=== PATIENT | female | born 1970 | race Two or more races ===

== ENCOUNTER → 2016-04-13 | Outpatient (CLI) | payer MEDICARE | LOC: RAD 09:46 | PROVIDERS: ATTEND Thoracic Surgery (Cardiothoracic Vascular Surgery) | DX: R94.8 Abnormal results of function studies of other organs and systems (principal) | CPT/HCPCS: 74170 ==

== ENCOUNTER 2016-06-16 05:54 | Emergency (ER) | payer MEDICARE ==
[2016-06-16 07:17] LABS: ABSOLUTE LYMPHOCYTES (AUTO) 0.9 10^3/uL (0.5-4.7); ABSOLUTE MONOCYTES (AUTO) 0.4 10^3/uL (0.1-1.4); ABSOLUTE NEUT (AUTO) 6.8 10^3/uL (1.7-8.2); BASOPHILS % (AUTO) 0.1 % (0-2); EOSINOPHILS % (AUTO) 0.4 % (0-6); HEMATOCRIT 41.5 % (36.0-47.0); HEMOGLOBIN 14.3 g/dL (12.0-15.5); HGB HCT DIFFERENCE 1.4; LYMPHOCYTES % (AUTO) 11.5 % (13-45); MEAN CORPUSCULAR HEMOGLOBIN 31.1 pg (27.0-33.4); MEAN CORPUSCULAR HGB CONC 34.4 g/dL (32.0-36.0); MEAN CORPUSCULAR VOLUME 90 fl (80-97); MONOCYTES % (AUTO) 4.6 % (3-13); RED BLOOD COUNT 4.59 10^6/uL (3.72-5.28); RED CELL DISTRIBUTION WIDTH 12.7 % (11.5-14.0); SEGMENTED NEUTROPHILS % (AUTO) 83.4 % (42-78); WHITE BLOOD COUNT 8.2 10^3/uL (4.0-10.5)
[2016-06-16 07:35] LABS: ALANINE AMINOTRANSFERASE 29 U/L (9-52); ALBUMIN 4.3 g/dL (3.5-5.0); ALKALINE PHOSPHATASE 79 U/L (38-126); ANION GAP 13 (5-19); ASPARTATE AMINO TRANSFERASE 23 U/L (14-36); BILIRUBIN,TOTAL 0.9 mg/dL (0.2-1.3); BLOOD UREA NITROGEN 14 mg/dL (7-20); CALCIUM 8.9 mg/dL (8.4-10.2); CARBON DIOXIDE 20 mmol/L (22-30); CHLORIDE 105 mmol/L (98-107); CREATINE KINASE 48 U/L (30-135); CREATININE RESULT 0.82 mg/dL (0.52-1.25); GLUCOSE 118 mg/dL (75-110); POTASSIUM 3.7 mmol/L (3.6-5.0); SODIUM 137.7 mmol/L (137-145); TOTAL PROTEIN 8.1 g/dL (6.3-8.2)
[2016-06-16] MEDS ORDERED: RINGERS SOLUTION,LACTATED 1,000 ML IV ONE ×2 (07:39→08:33)
--- NOTE | 2016-06-16 07:39 | ER Document Report ---
ED General - General Time seen by provider: 07:33 Mode of Arrival: Wheelchair Information source: Patient, Relative - son TRAVEL OUTSIDE OF THE [place] IN LAST 30 DAYS: No - HPI Onset: This morning - see HPI note Onset/Duration: Sudden Associated symptoms: Productive cough, Diarrhea, Nausea, Rhinnorhea, Sore throat <CECILLE TIRADO - Last Filed: 06/16/16 09:26> <ELYSIA CASTILLO - Last Filed: 06/16/16 11:02> - General Chief Complaint: Near Syncope Stated Complaint: POSSIBLE SYNCOPAL EPISODE Notes: Patient is a 46 year old female presenting to the emergency department for possible syncope. Patient states she has had diarrhea x 1 day. Patient also complains of dizziness, light headedness, and nausea. Patient states she went to the bathroom at 05:30 this morning and also had diarrhea. Patinet states she went back to her bed, then quickly got up to turn the light on. She started having more severe lightheadedness and called her son. Patient states she then woke up on the floor and her son was there. Patient states "everything went black." Patient went to her doctor recently for cold like symptoms of sore throat, cough, and congestion. Patient states she received Augmentin. Patient states she did not take her dose for last night because she felt too nauseous. Patient was hypotensive upon arrival and is still hypotensive during exam with a BP of 97/71. Patient states that she now she feels tired and nauseous. Patient has no known allergies. (CECILLE TIRADO) - Related Data Allergies/Adverse Reactions: No Known Allergies Allergy (Verified 12/03/15 11:51) Past Medical History - General Information source: Patient - Social History Smoking Status: Never Smoker Frequency of alcohol use: None Drug Abuse: None Family History: None Patient has suicidal ideation: No Patient has homicidal ideation: No Past Surgical History: Reports: Hx Orthopedic Surgery - Immunizations Hx Diphtheria, Pertussis, Tetanus Vaccination: No <CECILLE TIRADO - Last Filed: 06/16/16 09:26> Review of Systems - Review of Systems Constitutional: No symptoms reported EENT: No symptoms reported Cardiovascular: See HPI, Dizziness, Lightheaded Respiratory: No symptoms reported Gastrointestinal: See HPI, Diarrhea, Nausea Genitourinary: No symptoms reported Female Genitourinary: No symptoms reported Musculoskeletal: No symptoms reported Skin: No symptoms reported Hematologic/Lymphatic: No symptoms reported Neurological/Psychological: See HPI -: Yes All other systems reviewed and negative <CECILLE TIRADO - Last Filed: 06/16/16 09:26> Physical Exam - Vital signs Interpretation: Hypotensive - General General appearance: Appears well, Alert In distress: Mild - HEENT Head: Normocephalic, Atraumatic Eyes: Normal Pupils: PERRL Mucous membranes: Moist - Respiratory Respiratory status: No respiratory distress Chest status: Nontender Breath sounds: Normal Chest palpation: Normal - Cardiovascular Rhythm: Regular Heart sounds: Normal auscultation Murmur: No - Abdominal Inspection: Normal Distension: No distension Bowel sounds: Normal Tenderness: Nontender Organomegaly: No organomegaly - Back Back: Normal, Nontender - Extremities General upper extremity: Normal inspection, Normal ROM, Normal strength General lower extremity: Normal inspection, Normal ROM, Normal strength - Neurological Neuro grossly intact: Yes Cognition: Normal Orientation: AAOx4 [place] Coma Scale Eye Opening: Spontaneous [place] Coma Scale Verbal: Oriented Neeta Coma Scale Motor: Obeys Commands [place] Coma Scale Total: 15 Speech: Normal - Psychological Associated symptoms: Normal affect, Normal mood - Skin Skin Temperature: Warm Skin Moisture: Dry <CECILLE TIRADO - Last Filed: 06/16/16 09:26> Course - Laboratory Result Diagrams: 06/16/16 06:30 06/16/16 06:39 <CECILLE TIRADO - Last Filed: 06/16/16 09:26> - Laboratory Result Diagrams: 06/16/16 06:30 06/16/16 06:39 - EKG Interpretation by Nm EKG shows normal: Sinus rhythm, [place], Intervals, QRS Complexes, ST-T Waves - Diffuse nonspecific T abnormalities Rate: Tachycardia - 100 When compared to previous EKG there are: Changes noted - Diffuse T-wave inversions, new since 11/04/2014 <ELYSIA CASTILLO - Last Filed: 06/16/16 11:02> - Re-evaluation Re-evalutation: 06/16/16 10:56 Patient is feeling much better now after 2 L of IV fluids. Her nauseousness is gone and she is inquiring about eating breakfast. There has been no diarrhea since she was first seen. (ELYSIA CASTILLO) - Vital Signs Vital signs: Temp Pulse Resp BP Pulse Ox 97.6 F 97 13 108/75 97 06/16/16 05:55 06/16/16 07:22 06/16/16 10:01 06/16/16 10:01 06/16/16 10:01 - Laboratory Laboratory results interpreted by me: 06/16/16 06/16/16 06/16/16 06:30 06:39 07:35 Seg Neutrophils % 83.4 H Lymphocytes % 11.5 L Carbon Dioxide 20 L Glucose 118 H Urine Protein 100 H Urine Ketones TRACE H Discharge <CECILLE TIRADO - Last Filed: 06/16/16 09:26> <LUIS F CASTILLOALL - Last Filed: 06/16/16 11:02> - Discharge Clinical Impression: Nausea Diarrhea Qualifiers: Diarrhea type: unspecified type Qualified Code(s): R19.7 - Diarrhea, unspecified Condition: Stable Disposition: HOME, SELF-CARE Additional Instructions: Diarrhea: Diarrhea means frequent, watery stools. There are many causes. Any problem that keeps the intestinal tract from absorbing water from the stool can lead to diarrhea. A sudden new diarrhea problem is usually caused by a virus, food sensitivity, toxic bacteria, or drugs. In this case, we expect the problem to go away soon. Testing is done only if you seem seriously ill from the diarrhea. If you have chronic diarrhea, or diarrhea that keeps coming back, we need to find out why. Chronic diarrhea can be due to inflammation of the bowels such as Crohn's disease or ulcerative colitis, food sensitivity such as intolerance to lactose or wheat protein, irritable bowel syndrome, and other problems. If your diarrhea is a significant problem but it's not clear why you have it, we' ll refer you to a specialist for further testing. During an episode of diarrhea, drink small amounts (two to six ounces) of clear liquids (soft drinks, sport drinks, herb teas, broth, etc). Take fluids frequently to prevent dehydration. It's usually not a problem to take mild anti- diarrhea medication such as Kaopectate or Pepto-Bismol. As the diarrhea eases, advance to small amounts of bland food (mashed potato, toast) for 24 hours. Call the physician if blood appears in your vomit or stool, if vomiting lasts longer than 24 hours, if the abdominal pain worsens or becomes localized to one area, if you develop high fever, or if you become lightheaded and weak. Nausea, Nonspecific: Nausea without vomiting can be caused by many different problems. Of course , it can mean that something's wrong with the stomach, such as "stomach flu," ulcers, or inflammation. But it can also be a symptom of a problem that has nothing to do with the stomach or intestines. In most cases, curing the nausea depends on fixing the problem that caused it. For temporary relief, we may use an anti-nausea medicine. It's important to avoid dehydration. Sip clear liquids. Take increasing amounts of fluid over the first 24 hours. Then start small amounts of bland foods (such as dry toast, applesauce, mashed potato). Avoid aspirin, tobacco, and alcohol. Gradually resume your usual diet. If the vomiting worsens, if the problem that's making you vomit worsens, or if there's evidence of bleeding in the stomach (such as black, tarry stool, bloody or black vomit, or lightheadedness), you should return immediately. Call your doctor if you aren't improved in 24 to 36 hours. TAKE THE MEDICATION DISPENSED AND PRESCRIBED FOR NAUSEA IF NEEDED. DRINK COOL CLEAR LIQUIDS TODAY. REST. FOLLOW UP WITH DR. RIVAS IF NOT IMPROVING. RETURN TO THE EMERGENCY ROOM IF ANY NEW OR WORSENING SYMPTOMS. Prescriptions: Ondansetron HCl [Zofran 4 mg Tablet] 1 - 2 tab PO Q4H PRN #12 tablet PRN Reason: Referrals: ALVIN RIVAS MD [Primary Care Provider] - Follow up as needed Scribe Attestation: 06/16/16 11:01 I personally performed the services described in the documentation, reviewed and edited the documentation which was dictated to the scribe in my presence, and it accurately records my words and actions. (ELYSIA CASTILLO) Scribe Documentation - Scribe Written by Emery:: Cecille Tirado 06/16/16 09:40 acting as scribe for :: Carmina <CECILLE TIRADO - Last Filed: 06/16/16 09:26>
[2016-06-16] MEDS ORDERED: ONDANSETRON HCL INJ/PF 4 MG/2 ML SDV IV ONE (07:40)
[2016-06-16 07:51] LABS: APPEARANCE,URINE CLOUDY; BILIRUBIN,URINE NEGATIVE (NEGATIVE); GLUCOSE, URINE NEGATIVE (NEGATIVE); KETONES,URINE TRACE mg/dL (NEGATIVE); LEUKOCYTE ESTERASE,URINE NEGATIVE (NEGATIVE); NITRITE,URINE NEGATIVE (NEGATIVE); PROTEIN,URINE 100 mg/dL (NEGATIVE); UROBILINOGEN,URINE NEGATIVE mg/dL (<2.0)
[2016-06-16 07:56] LABS: CREATINE KINASE MB < 0.22 ng/mL (<4.55); TROPONIN I < 0.012 ng/mL
--- NOTE | 2016-06-16 07:57 | EKG REPORT ---
SEVERITY:- ABNORMAL ECG - SINUS TACHYCARDIA NONSPECIFIC T ABNORMALITIES, DIFFUSE LEADS : Confirmed by: Brisa Babb MD 16-Jun-2016 07:56:45
[2016-06-16 10:47] VITALS: BP 108/75
[2016-06-16] MEDS ORDERED: ONDANSETRON ODT 4 MG TAB (6 TAB/DSPK) PO PRN (11:01)
== END 2016-06-16 11:17 | disposition home or self-care (01) ==
LOC: ER 05:54
DX: R19.7 Diarrhea, unspecified (principal); R11.0 Nausea; I95.9 Hypotension, unspecified; R94.31 Abnormal electrocardiogram [ECG] [EKG]; R42 Dizziness and giddiness; J02.9 Acute pharyngitis, unspecified; R05 Cough; R53.83 Other fatigue; J34.89 Other specified disorders of nose and nasal sinuses
CPT/HCPCS: 93005; 99284; 96375; 96365; 96366; 36415; 82553; 82550; 85025; 80053; 81001; 84484; 93010; J2405; J7120

== ENCOUNTER 2016-06-27 10:22 | Emergency (ER) | payer MEDICARE ==
[2016-06-27] MEDS ORDERED: MECLIZINE HCL 25 MG TABLET PO ONE (10:28)
--- NOTE | 2016-06-27 10:30 | ER Document Report ---
ED Medical Screen (RME) - General Stated Complaint: DIZZINESS Mode of Arrival: Ambulatory Information source: Patient Notes: March presents to the emergency department with complaints of dizziness. Patient reports she woke up dizzy and thought it would go away after eating something but it didn't. She also reports that she was evaluated here last week for an episode of syncope. Denies other symptoms such as fever vomiting diarrhea chest pain. I have greeted and performed a rapid initial assessment of this patient. A comprehensive ED assessment and evaluation of the patient, analysis of test results and completion of the medical decision making process will be conducted by additional ED providers. TRAVEL OUTSIDE OF THE [place] IN LAST 30 DAYS: No - Related Data Allergies/Adverse Reactions: No Known Allergies Allergy (Verified 12/03/15 11:51) Past Medical History - Past Medical History Cardiac Medical History: Denies: Hx Coronary Artery Disease, Hx Heart Attack, Hx Hypertension Pulmonary Medical History: Denies: Hx Asthma, Hx Bronchitis, Hx COPD, Hx Pneumonia Neurological Medical History: Denies: Hx Cerebrovascular Accident, Hx Seizures Renal/ Medical History: Denies: Hx Peritoneal Dialysis Musculoskeltal Medical History: Denies Hx Arthritis Past Surgical History: Reports: Hx Orthopedic Surgery. Denies: Hx Hysterectomy - Immunizations Hx Diphtheria, Pertussis, Tetanus Vaccination: No Physical Exam - Vital signs Vitals: Temp Pulse Resp BP Pulse Ox 98.4 F 71 20 126/84 H 99 06/27/16 10:06/27/16 10:06/27/16 10:06/27/16 10:06/27/16 10:26 Course - Vital Signs Vital signs: Temp Pulse Resp BP Pulse Ox 98.4 F 71 20 126/84 H 99 06/27/16 10:06/27/16 10:06/27/16 10:06/27/16 10:06/27/16 10:26
[2016-06-27 11:09] LABS: ABSOLUTE MONOCYTES (AUTO) 0.6 10^3/uL (0.1-1.4); ABSOLUTE NEUT (AUTO) 5.2 10^3/uL (1.7-8.2); APPEARANCE,URINE CLEAR; BASOPHILS % (AUTO) 0.3 % (0-2); BILIRUBIN,URINE NEGATIVE (NEGATIVE); EOSINOPHILS % (AUTO) 0.4 % (0-6); GLUCOSE, URINE NEGATIVE (NEGATIVE); HEMATOCRIT 39.8 % (36.0-47.0); HEMOGLOBIN 13.4 g/dL (12.0-15.5); HGB HCT DIFFERENCE 0.4; KETONES,URINE NEGATIVE (NEGATIVE); LEUKOCYTE ESTERASE,URINE NEGATIVE (NEGATIVE); LYMPHOCYTES % (AUTO) 25.1 % (13-45); MEAN CORPUSCULAR HEMOGLOBIN 30.3 pg (27.0-33.4); MEAN CORPUSCULAR HGB CONC 33.7 g/dL (32.0-36.0); MEAN CORPUSCULAR VOLUME 90 fl (80-97); MONOCYTES % (AUTO) 8.1 % (3-13); NITRITE,URINE NEGATIVE (NEGATIVE); PROTEIN,URINE NEGATIVE (NEGATIVE); RED BLOOD COUNT 4.41 10^6/uL (3.72-5.28); RED CELL DISTRIBUTION WIDTH 12.7 % (11.5-14.0); SEGMENTED NEUTROPHILS % (AUTO) 66.1 % (42-78); URINE SPECIFIC GRAVITY 1.014; UROBILINOGEN,URINE NEGATIVE mg/dL (<2.0); WHITE BLOOD COUNT 7.8 10^3/uL (4.0-10.5)
[2016-06-27 11:33] LABS: ALANINE AMINOTRANSFERASE 31 U/L (9-52); ALBUMIN 4.3 g/dL (3.5-5.0); ALKALINE PHOSPHATASE 76 U/L (38-126); ANION GAP 15 (5-19); ASPARTATE AMINO TRANSFERASE 21 U/L (14-36); BILIRUBIN,DIRECT 0.2 mg/dL (0.0-0.4); BILIRUBIN,TOTAL 0.6 mg/dL (0.2-1.3); BLOOD UREA NITROGEN 11 mg/dL (7-20); CALCIUM 9.6 mg/dL (8.4-10.2); CARBON DIOXIDE 20 mmol/L (22-30); CHLORIDE 109 mmol/L (98-107); CREATININE RESULT 0.72 mg/dL (0.52-1.25); GLUCOSE 98 mg/dL (75-110); POTASSIUM 3.9 mmol/L (3.6-5.0); SODIUM 143.7 mmol/L (137-145); TOTAL PROTEIN 7.5 g/dL (6.3-8.2)
--- NOTE | 2016-06-27 11:40 | ER Document Report ---
ED Dizziness/Weakness <ELYSIA CASTILLO - Last Filed: 06/27/16 11:43> - General Mode of Arrival: Ambulatory Information source: Patient TRAVEL OUTSIDE OF THE [place] IN LAST 30 DAYS: No - HPI Patient complains to provider of: Dizziness, Vertigo Onset: This morning Exacerbated by: Movement of head <SAVANNA VALADEZ - Last Filed: 06/27/16 11:50> - General Chief Complaint: Dizziness Stated Complaint: DIZZINESS Notes: Patient is a 46-year-old female that presents to the emergency department today with complaints of dizziness upon awakening this morning. Patient states she was lying in bed and noticed that "the room was spinning". Patient states her dizziness was worsened with lying down and rapid head movements. Patient received meclizine in triage some time ago and reports that her dizziness is now gone. (SAVANNA VALADEZ) - Related Data Allergies/Adverse Reactions: No Known Allergies Allergy (Verified 12/03/15 11:51) Past Medical History - General Information source: Patient - Social History Smoking Status: Never Smoker Cigarette use (# per day): No Chew tobacco use (# tins/day): No Frequency of alcohol use: None Drug Abuse: None Lives with: Family Family History: Reviewed & Not Pertinent Patient has suicidal ideation: No Patient has homicidal ideation: No Past Surgical History: Reports: Hx Orthopedic Surgery - Immunizations Hx Diphtheria, Pertussis, Tetanus Vaccination: No <SAVANNA VALADEZ - Last Filed: 06/27/16 11:50> Review of Systems - Review of Systems Constitutional: No symptoms reported EENT: No symptoms reported Cardiovascular: See HPI, Dizziness Respiratory: No symptoms reported Gastrointestinal: No symptoms reported Genitourinary: No symptoms reported Female Genitourinary: No symptoms reported Musculoskeletal: No symptoms reported Skin: No symptoms reported Hematologic/Lymphatic: No symptoms reported Neurological/Psychological: No symptoms reported -: Yes All other systems reviewed and negative <SAVANNA VALADEZ - Last Filed: 06/27/16 11:50> Physical Exam <ELYSIA CASTILLO - Last Filed: 06/27/16 11:43> - General General appearance: Appears well, Alert In distress: None - HEENT Head: Normocephalic, Atraumatic Eyes: Normal Conjunctiva: Normal Extraocular movements intact: Yes Pupils: PERRL - no nystagmus - Respiratory Respiratory status: No respiratory distress Chest status: Nontender Breath sounds: Normal Chest palpation: Normal - Cardiovascular Rhythm: Regular Heart sounds: Normal auscultation Murmur: No - Abdominal Inspection: Normal Distension: No distension - Extremities General upper extremity: Normal inspection, Normal ROM. No: Edema General lower extremity: Normal inspection, Normal ROM. No: Edema - Neurological Neuro grossly intact: Yes Cognition: Normal Orientation: AAOx4 Speech: Normal - Psychological Associated symptoms: Normal affect, Normal mood - Skin Skin Temperature: Warm Skin Moisture: Dry Skin Color: Normal <SAVANNA VALADEZ - Last Filed: 06/27/16 11:50> - Vital signs Vitals: Temp Pulse Resp BP Pulse Ox 98.4 F 71 20 126/84 H 99 06/27/16 10:26 06/27/16 10:26 06/27/16 10:26 06/27/16 10:26 06/27/16 10:26 - HEENT Notes: No dizziness elicited with rapid head movement after meclizine was administered in triage (SAVANNA VALADEZ) Course - Laboratory Result Diagrams: 06/27/16 10:40 06/27/16 10:40 - EKG Interpretation by Mo EKG shows normal: Sinus rhythm, [place], Intervals, QRS Complexes. abnormal: ST-T Waves - Diffuse borderline T abnormalities Rate: Normal - 66 Rhythm: NSR When compared to previous EKG there are: Changes noted - T abnormalities are less pronounced than the previous EKG from 11 days ago <ELYSIA CASTILLO - Last Filed: 06/27/16 11:43> - Laboratory Result Diagrams: 06/27/16 10:40 06/27/16 10:40 <SAVANNA VALADEZ - Last Filed: 06/27/16 11:50> - Vital Signs Vital signs: Temp Pulse Resp BP Pulse Ox 98.4 F 71 20 126/84 H 99 06/27/16 10:26 06/27/16 10:26 06/27/16 10:26 06/27/16 10:26 06/27/16 10:26 - Laboratory Laboratory results interpreted by in: 06/27/16 10:40 Chloride 109 H Carbon Dioxide 20 L Discharge <ELYSIA CASTILLO - Last Filed: 06/27/16 11:43> <SAVANNA VALADEZ - Last Filed: 06/27/16 11:50> - Discharge Clinical Impression: Vertigo Condition: Stable Disposition: HOME, SELF-CARE Additional Instructions: Vertigo: You have experienced an episode of vertigo -- a whirling dizziness which may be accompanied by nausea and vomiting or staggering. Vertigo is often caused by an irritation of the inner ear, in which case it is called labyrinthitis. It can also be a symptom of a degenerating inner ear, nerve damage, or brain injury. Your physician has evaluated you to determine whether any further testing is necessary. Vertigo is often treated with dramamine or meclizine. These medications are helpful, but stronger medication may be needed if you are vomiting. Rest in bed. You should not drive or operate machinery until completely better. It may take one to three weeks for recovery. If there are new symptoms, such as decreased hearing or vision, severe headache, weakness or faintness, or confusion, call the physician. //////////////////////////////////////////////////////////////////////////////// //////////////////////////////////////////////////////////////////////////// Take the medications as prescribed for the dizziness. Do not drive, operate equipment, or climb ladders. Get plenty of rest and drink plenty of fluids. Follow-up with your doctor if not improving. RETURN TO THE EMERGENCY ROOM IF ANY NEW OR WORSENING SYMPTOMS. Prescriptions: Meclizine HCl [Antivert 25 mg Tablet] 25 mg PO TID PRN #20 tablet PRN Reason: Scribe Attestation: 06/27/16 11:42 I personally performed the services described in the documentation, reviewed and edited the documentation which was dictated to the scribe in my presence, and it accurately records my words and actions. (ELYSIA CASTILLO) Scribe Documentation - Scribe Written by Scribe:: Emery Samuel, 06/27/2016 1150 acting as scribe for :: Carmina <SAVANNA VALADEZ - Last Filed: 06/27/16 11:50>
[2016-06-27 12:00] VITALS: BP 123/70
--- NOTE | 2016-06-27 19:59 | EKG REPORT ---
SEVERITY:- BORDERLINE ECG - SINUS RHYTHM BORDERLINE T ABNORMALITIES, DIFFUSE LEADS : Confirmed by: Irvin Shaffer MD 27-Jun-2016 19:58:46
== END 2016-06-27 12:00 | disposition home or self-care (01) ==
LOC: ER 10:22
DX: R42 Dizziness and giddiness (principal); R94.31 Abnormal electrocardiogram [ECG] [EKG]
CPT/HCPCS: 93005; 99284; 36415; 84703; 85025; 80053; 81001; 93010; A9270

== ENCOUNTER → 2017-11-28 | Outpatient (CLI) | payer MEDICARE ==
--- NOTE | 2017-11-28 11:47 | RADIOLOGY REPORT (SQ) ---
EXAM DESCRIPTION: C SP 4 OR 5 VIEWS COMPLETED DATE/TIME: 11/28/2017 11:37 am REASON FOR STUDY: LUMBAR PAIN; NECK PAIN M54.5 LOW BACK PAIN M54.2 CERVICALGIA COMPARISON: None. NUMBER OF VIEWS: Five views. TECHNIQUE: AP, lateral, obliques and odontoid radiographic images acquired of the cervical spine. LIMITATIONS: None. FINDINGS: MINERALIZATION: Normal. ALIGNMENT: Anatomic. VERTEBRAE: Vertebral bodies of normal height. DISCS: No significant osteophytes or sclerosis. Disc height maintained. FORAMINA: No osteophytes or foraminal narrowing. LATERAL AND POSTERIOR ELEMENTS: Facets, lateral masses and spinous processes without significant find ings. HARDWARE: None in the spine. SOFT TISSUES: No masses or calcifications. Lung apices clear. OTHER: Mildly prominent transverse processes at C7. IMPRESSION: 1. NO SIGNIFICANT RADIOGRAPHIC FINDING IN THE CERVICAL SPINE. TECHNICAL DOCUMENTATION: JOB ID: [id number] [employer]- All Rights Reserved Reading location - IP/workstation name: [email or web address]
--- NOTE | 2017-11-28 11:50 | RADIOLOGY REPORT (SQ) ---
EXAM DESCRIPTION: LUMBAR SPINE COMPLETE COMPLETED DATE/TIME: 11/28/2017 11:37 am REASON FOR STUDY: LUMBAR PAIN; NECK PAIN M54.5 LOW BACK PAIN M54.2 CERVICALGIA COMPARISON: None. NUMBER OF VIEWS: Five views including obliques. TECHNIQUE: AP, lateral, oblique, and sacral radiographic images acquired of the lumbar spine. LIMITATIONS: None. FINDINGS: MINERALIZATION: Normal. SEGMENTATION: Normal. No transitional anatomy. ALIGNMENT: Minimal scoliosis and/or tilting at thoracolumbar junction. VERTEBRAE: Maintained height. No fracture or worrisome bone lesion. DISCS: Preserved height. No significant osteophytes or end plate irregularity. POSTERIOR ELEMENTS: Pedicles and facets are intact. No pars defect or posterior arch defects. HARDWARE: None in the spine. PARASPINAL SOFT TISSUES: Normal. PELVIS: Intact as visualized. No fractures or worrisome bone lesions. SI joints intact. OTHER: No other significant finding. IMPRESSION: NORMAL 5 VIEW LUMBAR SPINE. TECHNICAL DOCUMENTATION: JOB ID: [id number] [employer]- All Rights Reserved Reading location - IP/workstation name: [email or web address]
== END ==
LOC: OD 11:07
PROVIDERS: ATTEND Physician Assistant
DX: M54.2 Cervicalgia (principal); M54.5 Low back pain
CPT/HCPCS: 72050; 72110

== ENCOUNTER → 2017-12-29 | Outpatient (CLI) | payer MEDICARE ==
--- NOTE | 2017-12-29 09:08 | RADIOLOGY REPORT (SQ) ---
EXAM DESCRIPTION: MRI CERVICAL SPINE WITHOUT COMPLETED DATE/TIME: 12/29/2017 8:41 am REASON FOR STUDY: CERVICALGIA (M54.2) M54.2 CERVICALGIA COMPARISON: None. TECHNIQUE: Sagittal and Axial imaging includes T1, T2, STIR and gradient echo sequences. LIMITATIONS: None. FINDINGS: ALIGNMENT: Normal. VERTEBRAE: Intact. BONE MARROW: Normal. No marrow replacement or reactive changes. DISCS: Normal. No significant abnormal signal or loss of height. HARDWARE: None in the spine. CORD AND BASE OF BRAIN: Normal in size and signal intensity. SOFT TISSUES: No soft tissue masses. C1-C2: No significant spinal stenosis. C2-C3: No significant spinal stenosis or exit foraminal stenosis. C3-C4: No significant spinal stenosis or exit foraminal stenosis. C4-C5: No significant spinal stenosis or exit foraminal stenosis. C5-C6: No significant spinal stenosis or exit foraminal stenosis. C6-C7: There is minimal disc bulging at C6-C7. No central stenosis or nerve root impingement. C7-T1: No significant spinal stenosis or exit foraminal stenosis. UPPER THORACIC: Incompletely imaged. No significant spinal stenosis or exit foraminal stenosis. OTHER: No other significant finding. IMPRESSION: Minimal disc bulging at C6-C7. No central stenosis or nerve root impingement. No other significant findings. TECHNICAL DOCUMENTATION: JOB ID: [id number] [employer]- All Rights Reserved Reading location - IP/workstation name: [email or web address]
== END ==
LOC: RAD 07:57
PROVIDERS: ATTEND Physician Assistant
DX: M54.2 Cervicalgia (principal)
CPT/HCPCS: 72141

== ENCOUNTER → 2019-05-02 | Outpatient (CLI) | payer MEDICARE ==
--- NOTE | 2019-05-02 11:45 | WOMENS IMAGING REPORT ---
EXAM DESCRIPTION: 3D SCREENING MAMMO BILAT COMPLETED DATE/TIME: 05/02/2019 11:01 am REASON FOR STUDY: Z12.31 ENCOUNTER FOR SCREENING MAMMOGRAM FOR MALIGNANT NEOPLASM OF BREAST Z12.31 ENCNTR SCREEN MAMMOGRAM FOR MALIGNANT NEOPLASM OF FAN COMPARISON: [id number] EXAM PARAMETERS: Views: Standard craniocaudal and mediolateral oblique views of each breast recorded using digital acquisition and breast tomosynthesis. Read with the assistance of CAD. .[facility] - [employer]ender Hand Version 9.2 LIMITATIONS: None. FINDINGS: No suspicious masses, suspicious calcifications or architectural distortion. No areas of c oncern. IMPRESSION: NEGATIVE MAMMOGRAM. BIRADS 1. BREAST DENSITY: b. There are scattered areas of fibroglandular density. BIRAD: ASSESSMENT: 1 NEGATIVE RECOMMENDATION: ROUTINE SCREENING COMMENT: The patient has been notified of the results by letter per MQSA requirements. Additional no tification policies are in place for contacting patient with suspicious or incomplete findings. Quality ID #[id number]: The [employer] recommends an annual screening mammogram for women aged 40 years or over. This facility utilizes a reminder system to ensure that all patients receive reminder letters, and/or direct phone calls for appointments. This includes reminders for routine scr eening mammograms, diagnostic mammograms, or other Breast Imaging Interventions when appropriate. Th is patient will be placed in the appropriate reminder system. TECHNICAL DOCUMENTATION: FINDING NUMBER: (1) ASSESSMENT: (1) JOB ID: [id number] [employer]- All Rights Reserved Reading location - IP/workstation name: [email or web address]
== END ==
LOC: WI 10:46
PROVIDERS: ATTEND Physician Assistant
DX: Z12.31 Encounter for screening mammogram for malignant neoplasm of breast (principal)
CPT/HCPCS: 77063; 77067

== ENCOUNTER 2020-03-31 11:32 | Emergency (ER) | payer MEDICARE ==
[2020-03-31 11:43] VITALS: BP 136/62
--- NOTE | 2020-03-31 15:24 | RADIOLOGY REPORT (SQ) ---
EXAM DESCRIPTION: CHEST SINGLE VIEW IMAGES COMPLETED DATE/TIME: 03/31/2020 3:15 pm REASON FOR STUDY: Cough right-sided chest pain Covid positive COMPARISON: None. EXAM PARAMETERS: NUMBER OF VIEWS: One view. TECHNIQUE: Single frontal radiographic view of the chest acquired. RADIATION DOSE: NA LIMITATIONS: None. FINDINGS: LUNGS AND PLEURA: No opacities, masses or pneumothorax. No pleural effusion. MEDIASTINUM AND HILAR STRUCTURES: No masses. Contour normal. HEART AND VASCULAR STRUCTURES: Heart normal in size. Normal vasculature. BONES: No acute findings. HARDWARE: None in the chest. OTHER: No other significant finding. IMPRESSION: NO ACUTE RADIOGRAPHIC FINDING IN THE CHEST. TECHNICAL DOCUMENTATION: JOB ID: [id number] 2010 [employer]- All Rights Reserved Reading location - IP/workstation name: [email or web address]
[2020-03-31 16:07] LABS: ABSOLUTE LYMPHOCYTES (AUTO) 1.6 10^3/uL (0.5-4.7); ABSOLUTE MONOCYTES (AUTO) 0.3 10^3/uL (0.1-1.4); ABSOLUTE NEUT (AUTO) 8.7 10^3/uL (1.7-8.2); BASOPHILS % (AUTO) 0.1 % (0-2); HEMATOCRIT 38.8 % (36.0-47.0); HEMOGLOBIN 13.5 g/dL (12.0-15.5); LYMPHOCYTES % (AUTO) 14.7 % (13-45); MEAN CORPUSCULAR HEMOGLOBIN 31.1 pg (27.0-33.4); MEAN CORPUSCULAR HGB CONC 34.7 g/dL (32.0-36.0); MEAN CORPUSCULAR VOLUME 90 fl (80-97); MONOCYTES % (AUTO) 2.8 % (3-13); PLATELET COUNT 278 10^3/uL (150-450); RED BLOOD COUNT 4.33 10^6/uL (3.72-5.28); RED CELL DISTRIBUTION WIDTH 12.9 % (11.5-14.0); SEGMENTED NEUTROPHILS % (AUTO) 82.4 % (42-78); TOTAL CELLS COUNTED % (AUTO) 100 %; WHITE BLOOD COUNT 10.6 10^3/uL (4.0-10.5)
--- NOTE | 2020-04-01 09:03 | EKG REPORT ---
SEVERITY:- ABNORMAL ECG - SINUS RHYTHM NONSPECIFIC T ABNORMALITIES, DIFFUSE LEADS : Confirmed by: Arnel Saul MD 01-Apr-2020 09:02:43
--- NOTE | 2020-04-07 08:40 | ER Document Report ---
ED Medical Screen (RME) - General Chief Complaint: Chest Pain Stated Complaint: SHORTNESS OF BREATH/COVID+ Time Seen by Provider: 03/31/20 13:09 Primary Care Provider: AVERY KLEIN PA [Primary Care Provider] - Follow up as needed Mode of Arrival: Ambulatory Information source: Patient Notes: Late entry 50-year-old female presented to ED for shortness of breath and pressure to the right side of her chest. She states it was very difficult to take a deep breath. She states she was tested positive for Covid on the but her symptoms have gotten worse. Blood urine chest x-ray and EKG have been ordered. She was able to speak full sentences walks with even steady gait. She states she did have more pain on inspiration. She will be seen by another provider. I have greeted and performed a rapid initial assessment of this patient. A comprehensive ED assessment and evaluation of the patient, analysis of test results and completion of medical decision making process will be conducted by an additional ED providers. Patient did elope before she was seen by another provider TRAVEL OUTSIDE OF THE [place] IN LAST 30 DAYS: No - Related Data Allergies/Adverse Reactions: No Known Allergies Allergy (Verified 12/03/15 11:51) Past Medical History - Past Medical History Cardiac Medical History: Denies: Hx Coronary Artery Disease, Hx Heart Attack, Hx Hypertension Pulmonary Medical History: Denies: Hx Asthma, Hx Bronchitis, Hx COPD, Hx Pneumonia Neurological Medical History: Denies: Hx Cerebrovascular Accident, Hx Seizures Renal/ Medical History: Denies: Hx Peritoneal Dialysis Musculoskeltal Medical History: Denies Hx Arthritis Past Surgical History: Reports: Hx Orthopedic Surgery. Denies: Hx Hysterectomy - Immunizations Hx Diphtheria, Pertussis, Tetanus Vaccination: No Physical Exam - Vital signs Vitals: Temp Pulse Resp BP Pulse Ox 98.1 F 76 16 136/62 H 100 03/31/20 11:38 03/31/20 11:38 03/31/20 11:38 03/31/20 11:38 03/31/20 11:38 Course - Vital Signs Vital signs: Temp Pulse Resp BP Pulse Ox 98.1 F 76 16 136/62 H 100 03/31/20 11:38 03/31/20 11:38 03/31/20 11:38 03/31/20 11:38 03/31/20 11:38 - Laboratory Results Result Diagrams: 12/28/20 15:24 Laboratory Results Interpreted: 03/31/20 15:24 WBC 10.6 H [place] % (Auto) 2.8 L Absolute [place] (auto) 8.7 H Seg Neutrophils % 82.4 H Doctor's Discharge - Discharge Disposition: ELOPED Referrals: AVERY KLEIN PA [Primary Care Provider] - Follow up as needed
== END 2020-03-31 19:30 | disposition left against medical advice (07) ==
LOC: ER 11:32
DX: U07.1 COVID-19 (principal); R06.02 Shortness of breath; R07.89 Other chest pain; Z53.20 Procedure and treatment not carried out because of patient's decision for unspecified reasons
CPT/HCPCS: 36415; 71045; 85025; 93005; 93010; 99281